=== PATIENT | female | born 1965 | race Caucasian/White ===

== ENCOUNTER → 2019-08-11 07:28 | Outpatient (CLI) | payer OTHER ==
[2016-05-24 09:53] VITALS: BMI 32.6
[~2019-08-11 07:28] MED LIST: ATIVAN0.5 MG PO; CLEOCIN HCL300 MG PO; DOXYCYCLINE HY100 M2 PO; VOLTAREN75 MG PO
== END | disposition home or self-care (01) ==
LOC: D.US 07:28
PROVIDERS: ATTEND Family Medicine
DX: L02.211 Cutaneous abscess of abdominal wall (principal)